=== PATIENT | male | born 1975 | race Caucasian/White ===

== ENCOUNTER 2022-03-24 02:39 | Emergency (ER) | payer OTHER ==
[~2022-03-24] VITALS: Ht 175.3 cm; Wt 77.1 kg
== END 2022-03-24 04:22 | disposition left against medical advice (07) ==
LOC: ER 02:39
DX: T18.9XXA Foreign body of alimentary tract, part unspecified, initial encounter (principal); X58.XXXA Exposure to other specified factors, initial encounter; Z53.29 Procedure and treatment not carried out because of patient's decision for other reasons; F17.210 Nicotine dependence, cigarettes, uncomplicated
CPT/HCPCS: 74018